=== PATIENT | female | born 1955 ===

== ENCOUNTER 2024-06-24 10:26 | Inpatient (IN) | payer OTHER ==
[~2024-06-24] VITALS: Ht 160 cm; Wt 64.4 kg
[~2024-06-24 10:26] MED LIST: ACID REDUCER20 M1 PO; AVAPRO150 MG PO; LIPITOR20 MG PO
[2024-07-01] MEDS ORDERED: BUPIVACAINE HCL/PF 0.25% 30ML VIAL InF ONE (07:30)
[2024-07-01] MEDS ORDERED: LIDOCAINE HCL 1%/EPINEPHRINE 20ML VIAL IJ ONE (07:30)
[2024-07-01] MEDS ORDERED: METRONIDAZOLE/SODIUM CHLORIDE 500 MG/100 ML PIGGYBACK IV ONE (07:30)
[2024-07-01] MEDS ORDERED: CEFTRIAXONE SODIUM 2,000 MG VIAL IV ONE (07:30)
[2024-07-01] MEDS ORDERED: THROMBIN,HU/FIBRINOGEN/CALCIUM 10 ML SYRINGE TOP ONE (09:00)
[2024-07-01] MEDS ORDERED: VISTASEAL DUAL APPICATOR 1 EACH APPL TOP ONE (09:00)
[2024-07-01] MEDS ORDERED: SUGAMMADEX SODIUM 200 MG/2 ML VIAL IV ONE (09:30)
[2024-07-01] MEDS ORDERED: OxyCODONE HCL 5 MG TABLET (ROXICODONE) PO PRN (10:00)
[2024-07-01] MEDS ORDERED: RINGERS SOLUTION,LACTATED 1,000 ML IV SCH (10:00)
[2024-07-01] MEDS ORDERED: MORPHINE SULFATE 4 MG/ML CARTRIDGE IV PRN (10:00)
[2024-07-01] MEDS ORDERED: ONDANSETRON HCL 2 MG/ML VIAL IV PRN (10:00)
[2024-07-01] MEDS ORDERED: MORPHINE SULFATE 4 MG/ML VIAL IV ONE (11:40)
[2024-07-01] MEDS ORDERED: ENALAPRILAT DIHYDRATE 1.25 MG/ML VIAL IV PRN (11:45)
[2024-07-01 11:51] LABS: HEMATOCRIT 33.4 % (36.0-45.00); HEMOGLOBIN 11.5 g/dL (12.0-15.00); MEAN CELL VOLUME 91.8 fL (80.00-100.00); MEAN CORPUSCULAR HEMOGLOBIN 31.6 pg (27.00-32.0); MEAN CORPUSCULAR HGB CONC 34.4 g/dl (32.0-36.0); PLATELET COUNT 310 K/uL (150-450); RED BLOOD COUNT 3.64 M/uL (4.00-6.00); RED CELL DISTRIBUTION WIDTH 13.9 % (11.5-14.5)
[2024-07-01 12:38] VITALS: BP 143/73; O2SAT 100
[2024-07-01] MEDS ORDERED: HYOSCYAMINE SULFATE 0.125 MG TAB.SUBL SL SCH (13:00)
[2024-07-01] MEDS ORDERED: SIMETHICONE 125 MG CAPSULE PO SCH (13:00)
[2024-07-01] MEDS ORDERED: ACETAMINOPHEN 500 MG GEL..CAP PO SCH (14:00)
[2024-07-01 16:22] VITALS: BP 144/62; O2SAT 98
[2024-07-01] MEDS ORDERED: POLYETHYLENE GLYCOL 3350 17 GM BLIST.PACK PO SCH (17:00)
[2024-07-01] MEDS ORDERED: METOCLOPRAMIDE HCL 5 MG/ML VIAL IV SCH (17:00)
[2024-07-01] MEDS ORDERED: CELECOXIB 200 MG CAPSULE PO SCH (17:00)
[2024-07-01] MEDS ORDERED: GABAPENTIN 300 MG CAPSULE PO SCH (17:00)
[2024-07-01] MEDS ORDERED: FAMOTIDINE/PF 20 MG/2 ML VIAL IV PUSH SCH (21:00)
[2024-07-02 01:56] VITALS: BP 97/68; O2SAT 97
[2024-07-02 07:06] LABS: HEMATOCRIT 28.7 % (36.0-45.00); HEMOGLOBIN 10.1 g/dL (12.0-15.00); MEAN CELL VOLUME 91.4 fL (80.00-100.00); MEAN CORPUSCULAR HEMOGLOBIN 32.1 pg (27.00-32.0); MEAN CORPUSCULAR HGB CONC 35.1 g/dl (32.0-36.0); PLATELET COUNT 171 K/uL (150-450); RED BLOOD COUNT 3.14 M/uL (4.00-6.00); RED CELL DISTRIBUTION WIDTH 13.7 % (11.5-14.5)
[2024-07-02 07:40] LABS: ALBUMIN 2.5 gm/dL (3.4-5.0); CALCIUM 7.8 mg/dL (8.5-10.1); CREATININE SERUM 0.68 mg/dL (0.55-1.02); GFR 85.79; MAGNESIUM 1.5 mg/dL (1.8-2.4); POTASSIUM 4.27 mEq/L (3.5-5.1)
[2024-07-02 08:31] VITALS: BP 136/65; O2SAT 97
[2024-07-02] MEDS ORDERED: LACTOBACILLUS ACIDOPHILUS 1 CAP CAP PO SCH (09:00)
[2024-07-02] MEDS ORDERED: IRBESARTAN 150 MG TABLET PO SCH (09:00)
[2024-07-02] MEDS ORDERED: LACTULOSE 20 G/30 ML BLIST.PACK PO SCH (09:00)
[2024-07-02] MEDS ORDERED: MAGNESIUM SULFATE IN WATER 50 ML IV NR (10:15)
[2024-07-02] MEDS ORDERED: SOD FERRIC GLUC COMPLX/SUCROSE 62.5 MG in 0.9 % SODIUM CHLORIDE 50 ML IV SCH (12:00)
[2024-07-02] MEDS ORDERED: Cyanocobalamin/Mecobalamin 1 TAB.SL SL SCH (12:00)
[2024-07-02 16:56] VITALS: BP 122/67; O2SAT 98
[2024-07-02] MEDS ORDERED: ENOXAPARIN SODIUM 40 MG/0.4 ML SYRINGE SUBCUTANEO SCH (17:00)
[2024-07-02] MEDS ORDERED: ATORVASTATIN CALCIUM 20 MG TABLET PO SCH (17:00)
[2024-07-03] VITALS: BP 107/62; O2SAT 95
[2024-07-03 08:25] VITALS: BP 107/55; O2SAT 96
[2024-07-03] MEDS ORDERED: ENOXAPARIN SODIUM 40 MG/0.4 ML SYRINGE SUBCUTANEO SCH (09:00)
[2024-07-03 10:53] LABS: HEMATOCRIT 26.1 % (36.0-45.00); HEMOGLOBIN 9.3 g/dL (12.0-15.00); MEAN CELL VOLUME 91.5 fL (80.00-100.00); MEAN CORPUSCULAR HEMOGLOBIN 32.5 pg (27.00-32.0); MEAN CORPUSCULAR HGB CONC 35.5 g/dl (32.0-36.0); PLATELET COUNT 146 K/uL (150-450); RED BLOOD COUNT 2.86 M/uL (4.00-6.00); RED CELL DISTRIBUTION WIDTH 13.9 % (11.5-14.5)
[2024-07-03 11:37] LABS: CALCIUM 8.1 mg/dL (8.5-10.1); CREATININE SERUM 0.58 mg/dL (0.55-1.02); GFR 103.08; MAGNESIUM 2.4 mg/dL (1.8-2.4); POTASSIUM 3.65 mEq/L (3.5-5.1)
[2024-07-03 11:58] LABS: PHOSPHOROUS 1.9 mg/dL (2.5-4.9)
[2024-07-03] MEDS ORDERED: POTASSIUM PHOS,M-BASIC-D-BASIC 3 MM/ML VIAL IV NR (12:30)
[2024-07-03 17:46] VITALS: BP 106/73; O2SAT 92
== END 2024-07-03 17:11 | disposition home or self-care (01) | DRG 330 ==
LOC: SURH 07-01 05:40 → O/R 07-01 05:40 → SURH 07-01 10:47
PROVIDERS: Internal Medicine Geriatric Medicine; ADMIT Colon & Rectal Surgery; ATTEND Colon & Rectal Surgery
PROC: 0DBP4ZZ Excision of Rectum, Percutaneous Endoscopic Approach (ICD-10-PCS; 2024-07-01)
PROC: 07Q Lymphatic and Hemic Systems, Repair (ICD-10-PCS; 2024-07-01)
PROC: 0DJD8ZZ Inspection of Lower Intestinal Tract, Via Natural or Artificial Opening Endoscopic (ICD-10-PCS; 2024-07-01)
PROC: 0DTN4ZZ Resection of Sigmoid Colon, Percutaneous Endoscopic Approach (ICD-10-PCS; principal; 2024-07-01 18:15)
DX: K57.32 Diverticulitis of large intestine without perforation or abscess without bleeding (principal); K91.72 Accidental puncture and laceration of a digestive system organ or structure during other procedure; R10.32 Left lower quadrant pain; K66.0 Peritoneal adhesions (postprocedural) (postinfection); D64.89 Other specified anemias

== ENCOUNTER 2024-07-05 14:54 | Inpatient (IN) | payer OTHER ==
[~2024-07-05] VITALS: Ht 160 cm; Wt 65.8 kg
--- NOTE | 2024-07-05 15:19 | NUR ---
SE RECIBE PTE ALERTA Y ORIENTADA X3 EN [facility] DE FAM[facility]. PTE NOTIFICA VANESA SIDO OPERADA EL NIMO [place]URA POR EL DR. MAZARIEGOS Y QUE FAGAN INTERNISTA FUE DR. TELLO. PTE REFIERE QUE DESDE ENTONCES AGUIRRE ESTADO CON VOMITOS CONSTANTES Y DISTENCION ABDOMINAL. NIEGA CAMBIOS EN EVACUACION. SE MIDEN SV Y SE UBICA. PERSONAL DE AMBULANCIA NOTIFICA VANESA ADMINISTRADO ZOFRAN 4MG IV.
[2024-07-05] MEDS ORDERED: METOCLOPRAMIDE HCL 5 MG/ML VIAL IV ONE (15:45)
[2024-07-05] MEDS ORDERED: 0.9 % SODIUM CHLORIDE 500 ML IV ONE (15:45)
[2024-07-05] MEDS ORDERED: FAMOTIDINE/PF 20 MG/2 ML VIAL IV ONE (15:45)
[2024-07-05 16:16] LABS: ABG PH 7.433 (7.35-7.45); ABG PO2 74.6 mmHg (80-100); ABG pCO2 26.8 mmHg (35-45); BICARBONATE 17.5 mmol/l (23-25); SaO2 95.1 %; Tco2 18.3 mmol/l
[2024-07-05 16:17] LABS: allen test SATISFACTORY; o2 21 %; puncture site RADIAL LEFT
--- NOTE | 2024-07-05 16:19 | NUR ---
PTE ALERTA Y ORIENTADA X 3 ESFERAS SE LE ORIENTA SOBRE TX MEDICO EL CUAL REFIERE ENTENDER.SE LE EXTRAEN MUESTRAS BAJO MEDIDAS ASEPTICAS,SE ADMINISTRAN MEDICAMENTOS AMY ORDEN MEDICA.PTE CANALIZADA EN MANO LT #20 PATENTE Y JENNIFER DE EDEMA.SE REALIZA EKG.SE NOTIFICAN ABG A MS HUIZAR.
[2024-07-05 16:49] LABS: HEMATOCRIT 27.9 % (36.0-45.00); HEMOGLOBIN 9.5 g/dL (12.0-15.00); MEAN CELL VOLUME 92.1 fL (80.00-100.00); MEAN CORPUSCULAR HEMOGLOBIN 31.5 pg (27.00-32.0); MEAN CORPUSCULAR HGB CONC 34.2 g/dl (32.0-36.0); RED BLOOD COUNT 3.03 M/uL (4.00-6.00); RED CELL DISTRIBUTION WIDTH 14.1 % (11.5-14.5)
[2024-07-05 16:50] LABS: PLATELET COUNT 117 K/uL (150-450)
[2024-07-05 17:16] LABS: ALBUMIN 1.9 gm/dL (3.4-5.0); BILIRUBIN TOTAL 1.79 mg/dL (0.3-1.2); CALCIUM 8.7 mg/dL (8.5-10.1); CREATININE SERUM 0.82 mg/dL (0.55-1.02); GFR 69.12; GLOBULINA 3.4 G/DL (2.4-3.5); MAGNESIUM 2.6 mg/dL (1.8-2.4); PHOSPHOROUS 2.9 mg/dL (2.5-4.9); POTASSIUM 3.3 mEq/L (3.5-5.1); TOTAL PROTEIN 5.3 gm/dL (6.4-8.2)
[2024-07-05 17:18] LABS: INR 1.13; PROTHROMBIN TIME 12.2 SECONDS (9.0-11.5)
[2024-07-05] MEDS ORDERED: DEXTROSE 50 % IN WATER 0.5 G/ML VIAL IV ONE (17:30)
[2024-07-05 17:36] LABS: PARTIAL THROMBOPLASTIN TIME 39.3 SECONDS (22.0-34.0)
[2024-07-05 17:39] LABS: BILIRUBIN,CONJUGATED 0.92 mg/dL (0.0-0.2); BILIRUBIN,UNCONJUGATED 0.87 mg/dL (0.0-0.6)
[2024-07-05] MEDS ORDERED: PIPERACILLIN/TAZOBACTAM SODIUM 3.375 GM VIAL IV ONE (20:30)
[2024-07-05] MEDS ORDERED: 0.9 % SODIUM CHLORIDE 1,000 ML IV ONE (20:45)
[2024-07-05] MEDS ORDERED: MORPHINE SULFATE 4 MG/ML VIAL IV PRN (21:45)
--- NOTE | 2024-07-05 21:54 | NUR ---
SE RECIBE PTE ALERTA Y ORIENTADA X3 DESDE AREA DE OBSERVACION. SE OBSERVA CON BUEN PATRON RESPIRATORIO, CANALIZADA EN BRAZO JASSI CON ANGIO #20 EL CUAL ESTA PATENTE, JENNIFER DE EDEMA Y ERITEMA RECIBIENDO 0.9%NSS 1,000ML BAJANDO A 125 MLS/HR. SE ORIENTA PTE SOBRE NORMAS DE LA UNIDAD Y SE UBICA EN CAMA #2 EN CRITICO.
[2024-07-05] MEDS ORDERED: PANTOPRAZOLE SODIUM 80 MG in 0.9 % SODIUM CHLORIDE 100 ML IV SCH (22:15)
[2024-07-05 22:18] VITALS: BP 135/83
[2024-07-05 22:21] LABS: BILIRUBIN TOTAL 2.21 mg/dL (0.3-1.2); BILIRUBIN,CONJUGATED 1.04 mg/dL (0.0-0.2); BILIRUBIN,UNCONJUGATED 1.17 mg/dL (0.0-0.6)
[2024-07-05] MEDS ORDERED: PANTOPRAZOLE SODIUM 40 MG/VIAL VIAL IV SCH (22:21)
[2024-07-05] MEDS ORDERED: 0.9 % SODIUM CHLORIDE 1,000 ML IV SCH (22:30)
[2024-07-05] MEDS ORDERED: ONDANSETRON HCL 4 MG in 0.9 % SODIUM CHLORIDE 50 ML IV PRN (22:45)
[2024-07-05] MEDS ORDERED: ENALAPRILAT DIHYDRATE 1.25 MG/ML VIAL IV PRN (22:45)
[2024-07-05 23:09] LABS: PH,URINE 5.5 (5.0-8.0); URINE APPEARANCE Cloudy; URINE BILIRRUBIN Negative (NEGATIVE); URINE BLOOD Negative; URINE COLOR Dark Yellow; URINE KETONE 15 (NEGATIVE); URINE LEUKOCYTE Negative; URINE NITRATE Negative; URINE PROTEIN 30 (NEGATIVE); URINE UROBILINOGEN 0.2 E.U./dl
[2024-07-05 23:13] LABS: URINE BACTERIA 15.1 uL (0.0-1933); URINE CAST 2.44 uL (0.0-1.40); URINE EPITHELIAL CELLS 43.4 uL (0.0-38.8); URINE RBC 5.1 uL (0.0-20.8); URINE WBC 8.8 uL (0.0-23.2)
[2024-07-05 23:31] LABS: URINE GLUCOSE 500 MG/DL (NEGATIVE)
[2024-07-06] VITALS (8 sets, daily range): BP systolic 110–132; BP diastolic 62–79; O2SAT 96–100
[2024-07-06] MEDS ORDERED: PIPERACILLIN/TAZOBACTAM SODIUM 3.375 GM in 0.9 % SODIUM CHLORIDE 100 ML IV SCH
[2024-07-06 01:05] LABS: INR 1.1; PARTIAL THROMBOPLASTIN TIME 28.7 SECONDS (22.0-34.0); PROTHROMBIN TIME 11.9 SECONDS (9.0-11.5)
[2024-07-06 08:14] LABS: HEMATOCRIT 25.3 % (36.0-45.00); MEAN CELL VOLUME 91.1 fL (80.00-100.00); MEAN CORPUSCULAR HGB CONC 34.5 g/dl (32.0-36.0); RED BLOOD COUNT 2.78 M/uL (4.00-6.00); RED CELL DISTRIBUTION WIDTH 13.9 % (11.5-14.5)
[2024-07-06 08:44] LABS: ABG PH 7.464 (7.35-7.45); ABG PO2 80.3 mmHg (80-100); BICARBONATE 20.4 mmol/l (23-25); SaO2 96.4 %; Tco2 21.2 mmol/l; allen test SATISFACTORY; o2 32 %; puncture site RADIAL LEFT
[2024-07-06 08:45] LABS: ALBUMIN 1.6 gm/dL (3.4-5.0); CALCIUM 7.6 mg/dL (8.5-10.1); CREATININE SERUM 0.72 mg/dL (0.55-1.02); GFR 80.31
[2024-07-06 09:06] LABS: PHOSPHOROUS 1.7 mg/dL (2.5-4.9); POTASSIUM 2.77 mEq/L (3.5-5.1)
[2024-07-06] MEDS ORDERED: FUROsemide 20 MG/2 ML VIAL IV SCH (09:30)
[2024-07-06 09:50] LABS: MEAN CORPUSCULAR HEMOGLOBIN 31.2 pg (27.00-32.0)
[2024-07-06 09:53] LABS: HEMOGLOBIN 8.7 g/dL (12.0-15.00); PLATELET COUNT 41 K/uL (150-450)
[2024-07-06] MEDS ORDERED: POTASSIUM CHLORIDE IN WATER 40 MEQ/100 ML PIGGYBAG IV SCH (13:00)
[2024-07-06] MEDS ORDERED: METRONIDAZOLE/SODIUM CHLORIDE 500 MG/100 ML PIGGYBACK IV SCH (17:00)
[2024-07-06] MEDS ORDERED: POTASSIUM PHOS,M-BASIC-D-BASIC 3 MM/ML VIAL IV ONE (17:00)
[2024-07-06] MEDS ORDERED: MEROPENEM 1,000 MG VIAL IV SCH (17:00)
[2024-07-06] MEDS ORDERED: VANCOMYCIN HCL 1,000 MG VIAL IV SCH (21:00)
[2024-07-06 22:01] LABS: MEAN CELL VOLUME 90.9 fL (80.00-100.00); RED BLOOD COUNT 2.37 M/uL (4.00-6.00); RED CELL DISTRIBUTION WIDTH 14.6 % (11.5-14.5)
[2024-07-06 22:14] LABS: HEMOGLOBIN 7.3 g/dL (12.0-15.00); MEAN CORPUSCULAR HEMOGLOBIN 30.8 pg (27.00-32.0)
[2024-07-06 22:15] LABS: HEMATOCRIT 21.6 % (36.0-45.00); PLATELET COUNT 79 K/uL (150-450)
[2024-07-07] VITALS (11 sets, daily range): BP systolic 100–117; BP diastolic 55–81; O2SAT 95–100
[2024-07-07] MEDS ORDERED: DEXTROSE 5 % IN WATER 1,000 ML IV SCH (00:45)
[2024-07-07] MEDS ORDERED: DILTIAZEM HCL 125MG/25ML VIAL IV STA (02:07)
[2024-07-07] MEDS ORDERED: DILTIAZEM HCL 125 MG in 0.9 % SODIUM CHLORIDE 100 ML IV SCH (02:15)
[2024-07-07] MEDS ORDERED: METHYLPREDNISOLONE SOD SUCC 40 MG VIAL IV SCH (02:15)
[2024-07-07] MEDS ORDERED: MEROPENEM 1,000 MG VIAL IV SCH (06:00)
[2024-07-07] MEDS ORDERED: AA 4.25%/CALCIUM/LYTES/DEX 10% 1,000 ML CENTRAL SCH (11:45)
[2024-07-07 15:15] LABS: MEAN CELL VOLUME 90.5 fL (80.00-100.00); MEAN CORPUSCULAR HGB CONC 34.2 g/dl (32.0-36.0); RED BLOOD COUNT 2.58 M/uL (4.00-6.00); RED CELL DISTRIBUTION WIDTH 14.8 % (11.5-14.5)
[2024-07-07 15:24] LABS: HEMATOCRIT 23.4 % (36.0-45.00); PLATELET COUNT 50 K/uL (150-450)
[2024-07-07 15:37] LABS: ALBUMIN 1.4 gm/dL (3.4-5.0); BILIRUBIN TOTAL 1.41 mg/dL (0.3-1.2); CALCIUM 6.6 mg/dL (8.5-10.1); CREATININE SERUM 0.55 mg/dL (0.55-1.02); GFR 109.59; GLOBULINA 2.2 G/DL (2.4-3.5); PHOSPHOROUS 2.3 mg/dL (2.5-4.9); POTASSIUM 3.44 mEq/L (3.5-5.1); TOTAL PROTEIN 3.6 gm/dL (6.4-8.2)
[2024-07-07 15:53] LABS: D DIMER 5.77 MG/L; INR 1.15; PARTIAL THROMBOPLASTIN TIME 23.1 SECONDS (22.0-34.0); PROTHROMBIN TIME 12.4 SECONDS (9.0-11.5)
[2024-07-07 16:02] LABS: C-REACTIVE PROTEIN 13.1 MG/DL (0.00-0.29)
[2024-07-07] MEDS ORDERED: AA 3.31 %/D9.8W/FAT/E-LYTES 10 2,053 ML IV SCH (17:00)
[2024-07-07 17:01] LABS: HEMATOCRIT 26.8 % (36.0-45.00); HEMOGLOBIN 9.1 g/dL (12.0-15.00); MEAN CELL VOLUME 90.3 fL (80.00-100.00); MEAN CORPUSCULAR HEMOGLOBIN 30.5 pg (27.00-32.0); MEAN CORPUSCULAR HGB CONC 33.8 g/dl (32.0-36.0); RED BLOOD COUNT 2.97 M/uL (4.00-6.00); RED CELL DISTRIBUTION WIDTH 14.8 % (11.5-14.5)
[2024-07-07 17:03] LABS: PLATELET COUNT 57 K/uL (150-450)
[2024-07-07 17:14] LABS: ALBUMIN 1.6 gm/dL (3.4-5.0); BILIRUBIN TOTAL 1.46 mg/dL (0.3-1.2); CALCIUM 7.6 mg/dL (8.5-10.1); CREATININE SERUM 0.55 mg/dL (0.55-1.02); GFR 109.59; GLOBULINA 2.4 G/DL (2.4-3.5); POTASSIUM 4.31 mEq/L (3.5-5.1)
[2024-07-08 04:00] VITALS: BP 130/85; O2SAT 97
[2024-07-08 06:56] LABS: HEMATOCRIT 24.3 % (36.0-45.00); MEAN CELL VOLUME 88.8 fL (80.00-100.00); MEAN CORPUSCULAR HGB CONC 35.1 g/dl (32.0-36.0); RED BLOOD COUNT 2.73 M/uL (4.00-6.00); RED CELL DISTRIBUTION WIDTH 14.8 % (11.5-14.5)
[2024-07-08 07:07] LABS: HEMOGLOBIN 8.5 g/dL (12.0-15.00); MEAN CORPUSCULAR HEMOGLOBIN 31.1 pg (27.00-32.0); PLATELET COUNT 68 K/uL (150-450)
[2024-07-08 07:11] VITALS: BP 115/85; O2SAT 100
[2024-07-08 07:43] LABS: MANUAL PLATELET COUNT 176
[2024-07-08 07:44] LABS: ALBUMIN 1.5 gm/dL (3.4-5.0); BILIRUBIN TOTAL 0.87 mg/dL (0.3-1.2); CALCIUM 7.8 mg/dL (8.5-10.1); CREATININE SERUM 0.49 mg/dL (0.55-1.02); GFR 125.22; GLOBULINA 2.7 G/DL (2.4-3.5); MAGNESIUM 2.2 mg/dL (1.8-2.4); POTASSIUM 4.19 mEq/L (3.5-5.1); T4 TOTAL 4.15 UG/DL (4.8-13.9); TOTAL PROTEIN 4.2 gm/dL (6.4-8.2); TSH 2.06 uIU/mL (0.358-3.74)
[2024-07-08 07:49] LABS: C-REACTIVE PROTEIN 7.93 MG/DL (0.00-0.29)
[2024-07-08 07:50] LABS: PHOSPHOROUS 1.5 mg/dL (2.5-4.9)
[2024-07-08] MEDS ORDERED: DIPHENHYDRAMINE HCL 50 MG/ML VIAL 1ML IV NR (07:55)
[2024-07-08] MEDS ORDERED: METHYLPREDNISOLONE SOD SUCC 40 MG VIAL IV NR (07:55)
[2024-07-08] MEDS ORDERED: DIATRIZOATE MEGLUMINE, SODIUM 30 ML BOTTLE PO NR (07:55)
[2024-07-08] MEDS ORDERED: POTASSIUM PHOS,M-BASIC-D-BASIC 15 MM in 0.9 % SODIUM CHLORIDE 250 ML IV NR (08:00)
[2024-07-08 08:30] LABS: PLATELET ESTIMATE NORMAL (NORMAL)
[2024-07-08 12:00] VITALS: BP 126/78; O2SAT 100
[2024-07-08] MEDS ORDERED: METHYLPREDNISOLONE SOD SUCC 40 MG VIAL IV ONE (15:00)
[2024-07-08 16:15] VITALS: BP 118/81; O2SAT 96
[2024-07-08] MEDS ORDERED: MIDAZOLAM HCL 2 MG/2 ML VIAL IV PUSH ONE (16:30)
[2024-07-08] MEDS ORDERED: fentaNYL CITRATE 50 MCG/ML AMPUL IV PUSH ONE (16:30)
[2024-07-08 20:00] VITALS: BP 139/87; O2SAT 96
[2024-07-08] MEDS ORDERED: MEROPENEM 1,000 MG VIAL IV SCH (21:00)
[2024-07-08 23:21] VITALS: BP 124/106; O2SAT 95
[2024-07-09] VITALS (16 sets, daily range): BP systolic 84–124; BP diastolic 71–102; O2SAT 90–100
[2024-07-09 02:48] LABS: ABG PH 7.266 (7.35-7.45); ABG PO2 95.3 mmHg (80-100); ABG pCO2 38.7 mmHg (35-45); BASE EXCESS -9.1 mmol/l; BICARBONATE 17.2 mmol/l (23-25); SaO2 95.7 %; Tco2 18.4 mmol/l; allen test SATISFACTORY; o2 100 %; puncture site RADIAL LEFT
[2024-07-09] MEDS ORDERED: FUROsemide 20 MG/2 ML VIAL IV STA ×2 (03:12→07:16)
[2024-07-09] MEDS ORDERED: DIPHENHYDRAMINE HCL 50 MG/ML VIAL 1ML IV STA (03:16)
[2024-07-09] MEDS ORDERED: DILTIAZEM HCL 125 MG in 0.9 % SODIUM CHLORIDE 100 ML IV SCH (03:30)
[2024-07-09 06:24] LABS: HEMATOCRIT 38.2 % (36.0-45.00); MEAN CELL VOLUME 90.2 fL (80.00-100.00); MEAN CORPUSCULAR HEMOGLOBIN 30.7 pg (27.00-32.0); RED BLOOD COUNT 4.24 M/uL (4.00-6.00); RED CELL DISTRIBUTION WIDTH 15.2 % (11.5-14.5)
[2024-07-09 06:32] LABS: PLATELET COUNT 116 K/uL (150-450)
[2024-07-09] MEDS ORDERED: CHLORHEXIDINE GLUCONATE 15ML BRUSH KIT MM SCH (09:00)
[2024-07-09] MEDS ORDERED: CARBOXYMETHYLCELLULOSE SODIUM 1 EACH DROPERETTE OP SCH (09:00)
[2024-07-09 09:50] LABS: ALBUMIN 1.8 gm/dL (3.4-5.0); ALKALINE PHOSPHATASE 97 U/L (50-136); ANION GAP 12 (10.0-20.0); BILIRUBIN TOTAL 1.25 mg/dL (0.3-1.2); CALCIUM 7.2 mg/dL (8.5-10.1); CARBON DIOXIDE 23 mEq/L (21-32); CHLORIDE 102 mmol/L (98-107); CREATININE SERUM 0.81 mg/dL (0.55-1.02); GFR 70.11; PHOSPHOROUS 3.8 mg/dL (2.5-4.9); SODIUM 131 mmol/L (136-145)
[2024-07-09] MEDS ORDERED: MIDAZOLAM HCL 100 MG in 0.9 % SODIUM CHLORIDE 100 ML IV SCH (10:00)
[2024-07-09 10:31] LABS: ALT/SGPT 49 U/L (12-78); AST/SGOT 31 U/L (15-37)
[2024-07-09 10:32] LABS: BLOOD UREA NITROGEN 32 mg/dL (7-18); BUN CREA RATIO 40 (7.0-25.0); OSMOLALITY SERUM 307 MOSM/KG (275-295)
[2024-07-09 10:35] LABS: GLUCOSE FASTING 778 mg/dL (65-100)
[2024-07-09 10:43] LABS: ABG PH 7.292 (7.35-7.45); ABG PO2 67.3 mmHg (80-100); BASE EXCESS -8.3 mmol/l; BICARBONATE 17.5 mmol/l (23-25); SaO2 89.8 %
[2024-07-09 10:44] LABS: Tco2 18.6 mmol/l; allen test SATISFACTORY; o2 100 %; puncture site RADIAL RIGHT
[2024-07-09 10:45] LABS: ABG PH 7.355 (7.35-7.45); ABG PO2 93.4 mmHg (80-100); BASE EXCESS -6.8 mmol/l; BICARBONATE 17.5 mmol/l (23-25); SaO2 96.6 %; Tco2 18.5 mmol/l
[2024-07-09 10:47] LABS: allen test SATISFACTORY; o2 100 %; puncture site RADIAL RIGHT
[2024-07-09] MEDS ORDERED: VANCOMYCIN HCL 1,000 MG VIAL IV NR (11:00)
[2024-07-09] MEDS ORDERED: 0.9 % SODIUM CHLORIDE 1,000 ML IV SCH (11:15)
[2024-07-09] MEDS ORDERED: INSULIN LISPRO 1,000 UNIT/10 ML UNITS SUBCUTANEO PRN (11:15)
[2024-07-09] MEDS ORDERED: DEXTROSE 50 % IN WATER 0.5 G/ML DISP.SYRIN IV PRN (11:15)
[2024-07-09 11:29] LABS: HEMATOCRIT 37.9 % (36.0-45.00); HEMOGLOBIN 13.1 g/dL (12.0-15.00); MEAN CELL VOLUME 88.9 fL (80.00-100.00); MEAN CORPUSCULAR HEMOGLOBIN 30.8 pg (27.00-32.0); MEAN CORPUSCULAR HGB CONC 34.6 g/dl (32.0-36.0); RED BLOOD COUNT 4.26 M/uL (4.00-6.00); RED CELL DISTRIBUTION WIDTH 14.7 % (11.5-14.5)
[2024-07-09 11:30] LABS: PLATELET COUNT 95 K/uL (150-450)
[2024-07-09 12:48] LABS: ALBUMIN 2.1 gm/dL (3.4-5.0); BILIRUBIN TOTAL 1.01 mg/dL (0.3-1.2); CALCIUM 7.6 mg/dL (8.5-10.1); CREATININE SERUM 0.63 mg/dL (0.55-1.02); GFR 93.69; MAGNESIUM 2.2 mg/dL (1.8-2.4); PHOSPHOROUS 2.8 mg/dL (2.5-4.9); POTASSIUM 4.23 mEq/L (3.5-5.1); TOTAL PROTEIN 5.1 gm/dL (6.4-8.2)
[2024-07-09] MEDS ORDERED: FUROsemide 20 MG/2 ML VIAL IV SCH (13:00)
[2024-07-09] MEDS ORDERED: EMOLLIENT COMBINATION NO.92 2.5 OZ BOTTLE TOP SCH (13:00)
[2024-07-09] MEDS ORDERED: VANCOMYCIN HCL 1,000 MG VIAL IV SCH (21:00)
[2024-07-10] VITALS (15 sets, daily range): BP systolic 100–120; BP diastolic 83–97; O2SAT 96–99
[2024-07-10 07:04] LABS: HEMATOCRIT 38.1 % (36.0-45.00); HEMOGLOBIN 13.1 g/dL (12.0-15.00); MEAN CELL VOLUME 89.1 fL (80.00-100.00); MEAN CORPUSCULAR HEMOGLOBIN 30.5 pg (27.00-32.0); MEAN CORPUSCULAR HGB CONC 34.3 g/dl (32.0-36.0); RED BLOOD COUNT 4.28 M/uL (4.00-6.00); RED CELL DISTRIBUTION WIDTH 14.7 % (11.5-14.5)
[2024-07-10 07:18] LABS: ALBUMIN 1.9 gm/dL (3.4-5.0); BILIRUBIN TOTAL 0.99 mg/dL (0.3-1.2); CALCIUM 7.6 mg/dL (8.5-10.1); CREATININE SERUM 0.62 mg/dL (0.55-1.02); GFR 95.44; GLOBULINA 2.9 G/DL (2.4-3.5); POTASSIUM 4.36 mEq/L (3.5-5.1); TOTAL PROTEIN 4.8 gm/dL (6.4-8.2)
[2024-07-10 07:22] LABS: PLATELET COUNT 124 K/uL (150-450)
[2024-07-10] MEDS ORDERED: INSULIN NPH HUMAN ISOPHANE 1,000 UNITS/10 ML UNITS SUBCUTANEO SCH (09:00)
[2024-07-10 09:30] LABS: ABG PH 7.519 (7.35-7.45); ABG PO2 233.9 mmHg (80-100); ABG pCO2 25.6 mmHg (35-45); BASE EXCESS -0.8 mmol/l; SaO2 99.9 %
[2024-07-10 09:31] LABS: BICARBONATE 20.3 mmol/l (23-25); Tco2 21.1 mmol/l; allen test SATISFACTORY; o2 80 %; puncture site RADIAL RIGHT
[2024-07-10] MEDS ORDERED: FUROsemide 20 MG/2 ML VIAL IV SCH (12:35)
[2024-07-11] VITALS (15 sets, daily range): BP systolic 80–107; BP diastolic 67–89; O2SAT 96–100
[2024-07-11 06:24] LABS: HEMATOCRIT 41.8 % (36.0-45.00); HEMOGLOBIN 14.2 g/dL (12.0-15.00); MEAN CELL VOLUME 90.3 fL (80.00-100.00); MEAN CORPUSCULAR HEMOGLOBIN 30.7 pg (27.00-32.0); PLATELET COUNT 166 K/uL (150-450); RED BLOOD COUNT 4.63 M/uL (4.00-6.00); RED CELL DISTRIBUTION WIDTH 14.7 % (11.5-14.5)
[2024-07-11 06:50] LABS: CALCIUM 7.2 mg/dL (8.5-10.1); CREATININE SERUM 0.38 mg/dL (0.55-1.02); GFR 167.91; MAGNESIUM 2.2 mg/dL (1.8-2.4); POTASSIUM 4.37 mEq/L (3.5-5.1)
[2024-07-11 07:01] LABS: PHOSPHOROUS 1.8 mg/dL (2.5-4.9)
[2024-07-11 08:59] LABS: ABG PH 7.504 (7.35-7.45); ABG PO2 129.3 mmHg (80-100); ABG pCO2 27.3 mmHg (35-45); BASE EXCESS -0.6 mmol/l; SaO2 99.2 %; Tco2 21.8 mmol/l
[2024-07-11 09:00] LABS: allen test SATISFACTORY; o2 50 %; puncture site RADIAL LEFT
[2024-07-11] MEDS ORDERED: POTASSIUM PHOS,M-BASIC-D-BASIC 3 MM/ML VIAL IV NR (09:30)
[2024-07-11] MEDS ORDERED: ANIDULAFUNGIN 100 MG VIAL IV NR (09:45)
[2024-07-11] MEDS ORDERED: FUROsemide 20 MG/2 ML VIAL IV SCH (13:00)
[2024-07-11] MEDS ORDERED: FentaNYL CITRATE/PF 1,000 MCG in 0.9 % SODIUM CHLORIDE 100 ML IV SCH (20:15)
[2024-07-11] MEDS ORDERED: VANCOMYCIN HCL 5 MG/ML REDILUIDO IV SCH (21:00)
[2024-07-12] VITALS (13 sets, daily range): BP systolic 82–97; BP diastolic 60–71; O2SAT 010–100
[2024-07-12 08:33] LABS: CALCIUM 7.3 mg/dL (8.5-10.1); CREATININE SERUM 0.38 mg/dL (0.55-1.02); GFR 167.91; MAGNESIUM 2.2 mg/dL (1.8-2.4); PHOSPHOROUS 2.4 mg/dL (2.5-4.9); POTASSIUM 4.65 mEq/L (3.5-5.1)
[2024-07-12] MEDS ORDERED: ANIDULAFUNGIN 100 MG VIAL IV SCH (09:00)
[2024-07-12 10:09] LABS: HEMATOCRIT 38.8 % (36.0-45.00); HEMOGLOBIN 13.3 g/dL (12.0-15.00); MEAN CELL VOLUME 90.2 fL (80.00-100.00); MEAN CORPUSCULAR HGB CONC 34.4 g/dl (32.0-36.0); PLATELET COUNT 143 K/uL (150-450); RED CELL DISTRIBUTION WIDTH 14.5 % (11.5-14.5)
[2024-07-12] MEDS ORDERED: POTASSIUM PHOS,M-BASIC-D-BASIC 3 MM/ML VIAL IV NR (10:15)
[2024-07-12 10:25] LABS: ABG PH 7.452 (7.35-7.45); ABG PO2 134.6 mmHg (80-100); ABG pCO2 33.2 mmHg (35-45); BASE EXCESS -0.5 mmol/l; BICARBONATE 22.7 mmol/l (23-25); SaO2 99.2 %; Tco2 23.7 mmol/l
[2024-07-12 11:18] LABS: allen test SATISFACTORY; o2 50 %; puncture site RADIAL RIGHT
[2024-07-12] MEDS ORDERED: ALBUMIN HUMAN 100 ML VIAL IV SCH (13:00)
[2024-07-12] MEDS ORDERED: FUROsemide 20 MG/2 ML VIAL IV SCH (13:00)
[2024-07-13] VITALS (10 sets, daily range): BP systolic 98–145; BP diastolic 69–83; O2SAT 95–100
[2024-07-13 07:38] LABS: ALBUMIN 2.2 gm/dL (3.4-5.0); BILIRUBIN TOTAL 1.16 mg/dL (0.3-1.2); CALCIUM 7.5 mg/dL (8.5-10.1); CREATININE SERUM 0.41 mg/dL (0.55-1.02); GFR 153.81; GLOBULINA 2.1 G/DL (2.4-3.5); MAGNESIUM 2.2 mg/dL (1.8-2.4); PHOSPHOROUS 2.3 mg/dL (2.5-4.9); POTASSIUM 4.47 mEq/L (3.5-5.1); TOTAL PROTEIN 4.3 gm/dL (6.4-8.2)
[2024-07-13 08:01] LABS: HEMATOCRIT 32.9 % (36.0-45.00); HEMOGLOBIN 11.2 g/dL (12.0-15.00); MEAN CELL VOLUME 91.1 fL (80.00-100.00); MEAN CORPUSCULAR HEMOGLOBIN 31.1 pg (27.00-32.0); MEAN CORPUSCULAR HGB CONC 34.1 g/dl (32.0-36.0); PLATELET COUNT 166 K/uL (150-450); RED BLOOD COUNT 3.61 M/uL (4.00-6.00); RED CELL DISTRIBUTION WIDTH 14.1 % (11.5-14.5)
[2024-07-13] MEDS ORDERED: POTASSIUM PHOS,M-BASIC-D-BASIC 3 MM/ML VIAL IV NR (09:30)
[2024-07-13 10:22] LABS: ABG PO2 160.1 mmHg (80-100); ABG pCO2 33.2 mmHg (35-45); BICARBONATE 24.8 mmol/l (23-25); SaO2 99.6 %; Tco2 25.8 mmol/l; allen test SATISFACTORY; o2 50 %; puncture site RADIAL LEFT
[2024-07-13] MEDS ORDERED: PIPERACILLIN/TAZOBACTAM SODIUM 4.5 GM VIAL IV NR (17:00)
[2024-07-13] MEDS ORDERED: FUROsemide 20 MG/2 ML VIAL IV SCH (21:00)
[2024-07-14] VITALS (7 sets, daily range): BP systolic 93–116; BP diastolic 62–87; O2SAT 96–100
[2024-07-14] MEDS ORDERED: PIPERACILLIN/TAZOBACTAM SODIUM 3.375 GM VIAL IV SCH (01:00)
[2024-07-14 06:46] LABS: INR 1.08; PARTIAL THROMBOPLASTIN TIME 29.6 SECONDS (22.0-34.0); PROTHROMBIN TIME 11.7 SECONDS (9.0-11.5)
[2024-07-14 07:06] LABS: HEMATOCRIT 35.7 % (36.0-45.00); HEMOGLOBIN 11.9 g/dL (12.0-15.00); MEAN CORPUSCULAR HEMOGLOBIN 30.7 pg (27.00-32.0); MEAN CORPUSCULAR HGB CONC 33.4 g/dl (32.0-36.0); PLATELET COUNT 234 K/uL (150-450); RED BLOOD COUNT 3.88 M/uL (4.00-6.00)
[2024-07-14 07:12] LABS: CALCIUM 7.7 mg/dL (8.5-10.1); CREATININE SERUM 0.42 mg/dL (0.55-1.02); GFR 149.59; MAGNESIUM 2.2 mg/dL (1.8-2.4); PHOSPHOROUS 2.4 mg/dL (2.5-4.9); POTASSIUM 4.47 mEq/L (3.5-5.1)
[2024-07-14 07:13] LABS: C-REACTIVE PROTEIN 12.6 MG/DL (0.00-0.29)
[2024-07-14 07:37] LABS: CHOL HDL RATIO 5.2 (0-5.0)
[2024-07-14 08:53] LABS: ABG PH 7.477 (7.35-7.45); ABG PO2 136.9 mmHg (80-100); ABG pCO2 32.5 mmHg (35-45); BASE EXCESS 0.8 mmol/l; BICARBONATE 23.5 mmol/l (23-25); SaO2 99.3 %; Tco2 24.5 mmol/l
[2024-07-14 09:17] LABS: allen test SATISFACTORY; o2 50 %; puncture site RADIAL LEFT
[2024-07-14 10:42] LABS: UREA CLEARANCE 35.5 ML/MIN
[2024-07-14] MEDS ORDERED: INSULIN NPH HUMAN ISOPHANE 1,000 UNITS/10 ML UNITS SUBCUTANEO SCH (17:00)
[2024-07-15 04:00] VITALS: BP 113/70; O2SAT 99
[2024-07-15 06:49] LABS: HEMATOCRIT 34.5 % (36.0-45.00); MEAN CELL VOLUME 92.5 fL (80.00-100.00); MEAN CORPUSCULAR HGB CONC 32.6 g/dl (32.0-36.0); PLATELET COUNT 244 K/uL (150-450); RED BLOOD COUNT 3.73 M/uL (4.00-6.00); RED CELL DISTRIBUTION WIDTH 13.7 % (11.5-14.5)
[2024-07-15 06:56] LABS: HEMOGLOBIN 11.2 g/dL (12.0-15.00)
[2024-07-15 07:00] LABS: CALCIUM 8.2 mg/dL (8.5-10.1); CREATININE SERUM 0.51 mg/dL (0.55-1.02); GFR 119.57; MAGNESIUM 2.4 mg/dL (1.8-2.4); PHOSPHOROUS 2.3 mg/dL (2.5-4.9); POTASSIUM 3.84 mEq/L (3.5-5.1)
[2024-07-15 07:31] VITALS: BP 121/74; O2SAT 99
[2024-07-15] MEDS ORDERED: POTASSIUM PHOS,M-BASIC-D-BASIC 3 MM/ML VIAL IV NR (08:15)
[2024-07-15 08:51] LABS: ABG PH 7.484 (7.35-7.45); ABG PO2 224.9 mmHg (80-100); ABG pCO2 35.5 mmHg (35-45); BICARBONATE 26.1 mmol/l (23-25); SaO2 99.8 %; Tco2 27.2 mmol/l
[2024-07-15] MEDS ORDERED: ANIDULAFUNGIN 100 MG VIAL IV SCH (09:00)
[2024-07-15 10:33] LABS: allen test SATISFACTORY; o2 80 %; puncture site RADIAL LEFT
[2024-07-15 12:00] VITALS: BP 92/65; O2SAT 100
[2024-07-15 14:18] LABS: ABG PH 7.494 (7.35-7.45); ABG PO2 104.1 mmHg (80-100); ABG pCO2 34.3 mmHg (35-45); BASE EXCESS 2.9 mmol/l; BICARBONATE 25.7 mmol/l (23-25); SaO2 98.5 %; Tco2 26.8 mmol/l
[2024-07-15 14:44] LABS: allen test SATISFACTORY; o2 50 %; puncture site RADIAL LEFT
[2024-07-15] MEDS ORDERED: LEVALBUTEROL HCL 0.63 MG/3 ML SOLUTION IH SCH (16:00)
[2024-07-15 16:24] VITALS: BP 104/72; O2SAT 98
[2024-07-15 20:00] VITALS: BP 109/70; O2SAT 100
[2024-07-15 23:36] VITALS: BP 133/59; O2SAT 98
[2024-07-16 04:06] VITALS: BP 96/60; O2SAT 100
[2024-07-16 07:39] VITALS: BP 102/67; O2SAT 100
[2024-07-16 10:58] LABS: HEMATOCRIT 27.6 % (36.0-45.00); HEMOGLOBIN 9.3 g/dL (12.0-15.00); MEAN CELL VOLUME 92.3 fL (80.00-100.00); MEAN CORPUSCULAR HEMOGLOBIN 31.1 pg (27.00-32.0); MEAN CORPUSCULAR HGB CONC 33.7 g/dl (32.0-36.0); PLATELET COUNT 208 K/uL (150-450); RED CELL DISTRIBUTION WIDTH 13.6 % (11.5-14.5)
[2024-07-16] MEDS ORDERED: DIPHENHYDRAMINE HCL 50 MG/ML VIAL 1ML IV NR (11:00)
[2024-07-16] MEDS ORDERED: METHYLPREDNISOLONE SOD SUCC 40 MG VIAL IV NR (11:00)
[2024-07-16] MEDS ORDERED: DIATRIZOATE MEGLUMINE, SODIUM 30 ML BOTTLE PO NR (11:00)
[2024-07-16 11:48] LABS: ALBUMIN 1.6 gm/dL (3.4-5.0); BILIRUBIN TOTAL 0.68 mg/dL (0.3-1.2); CALCIUM 6.8 mg/dL (8.5-10.1); CREATININE SERUM 0.34 mg/dL (0.55-1.02); GFR 190.91; GLOBULINA 2.6 G/DL (2.4-3.5); POTASSIUM 3.11 mEq/L (3.5-5.1); TOTAL PROTEIN 4.2 gm/dL (6.4-8.2)
[2024-07-16 12:00] VITALS: BP 113/71; O2SAT 100
[2024-07-16] MEDS ORDERED: MULTIVIT INFUSN,ADULT 4,VIT K 10 ML VIAL IV NR (13:00)
[2024-07-16] MEDS ORDERED: THIAMINE HCL 100 MG/ML 2 ML VIAL IV NR (13:00)
[2024-07-16] MEDS ORDERED: SOD FERRIC GLUC COMPLX/SUCROSE 62.5 MG/5 ML AMPUL IV NR (13:00)
[2024-07-16 15:54] VITALS: BP 115/77; O2SAT 100
[2024-07-16] MEDS ORDERED: POTASSIUM CHLORIDE 20MEQ/100ML H2O PB IV NR (16:00)
[2024-07-16 20:31] VITALS: BP 117/76; O2SAT 97
[2024-07-16 23:31] VITALS: BP 109/69; BP 131/76; O2SAT 100
[2024-07-17 04:09] VITALS: BP 103/65; O2SAT 100
[2024-07-17 07:47] VITALS: BP 106/65; O2SAT 96
[2024-07-17] MEDS ORDERED: MULTIVIT INFUSN,ADULT 4,VIT K 10 ML VIAL IV SCH (09:00)
[2024-07-17] MEDS ORDERED: SOD FERRIC GLUC COMPLX/SUCROSE 62.5 MG in 0.9 % SODIUM CHLORIDE 50 ML IV SCH (09:00)
[2024-07-17] MEDS ORDERED: THIAMINE HCL 100 MG/ML 2 ML VIAL IV SCH (09:00)
[2024-07-17] MEDS ORDERED: FLUCONAZOLE IN NACL,ISO-OSM 400 MG/200 ML PIGGYBAG IV SCH (09:00)
[2024-07-17 11:09] LABS: HEMATOCRIT 29.9 % (36.0-45.00); HEMOGLOBIN 10.2 g/dL (12.0-15.00); MEAN CELL VOLUME 91.2 fL (80.00-100.00); MEAN CORPUSCULAR HEMOGLOBIN 31.2 pg (27.00-32.0); MEAN CORPUSCULAR HGB CONC 34.2 g/dl (32.0-36.0); PLATELET COUNT 242 K/uL (150-450); RED BLOOD COUNT 3.28 M/uL (4.00-6.00); RED CELL DISTRIBUTION WIDTH 14.1 % (11.5-14.5)
[2024-07-17 12:04] LABS: ALBUMIN 1.9 gm/dL (3.4-5.0); BILIRUBIN TOTAL 0.6 mg/dL (0.3-1.2); CREATININE SERUM 0.33 mg/dL (0.55-1.02); GFR 197.6; GLOBULINA 2.9 G/DL (2.4-3.5); MAGNESIUM 2.4 mg/dL (1.8-2.4); PHOSPHOROUS 2.9 mg/dL (2.5-4.9); POTASSIUM 4.12 mEq/L (3.5-5.1); TOTAL PROTEIN 4.8 gm/dL (6.4-8.2)
[2024-07-17 12:05] LABS: C-REACTIVE PROTEIN 11.1 MG/DL (0.00-0.29)
[2024-07-17 15:25] VITALS: BP 122/73; O2SAT 97
[2024-07-17 18:47] VITALS: O2SAT 100
[2024-07-18] VITALS (10 sets, daily range): BP systolic 116–132; BP diastolic 64–80; O2SAT 97–100
[2024-07-18] MEDS ORDERED: MIDAZOLAM HCL 2 MG/2 ML VIAL IV PUSH ONE (15:30)
[2024-07-18] MEDS ORDERED: fentaNYL CITRATE 50 MCG/ML AMPUL IV PUSH ONE (15:30)
[2024-07-18] MEDS ORDERED: MORPHINE SULFATE 4 MG/ML VIAL IV PRN (20:30)
[2024-07-19 00:57] VITALS: BP 126/80; O2SAT 100
[2024-07-19 06:36] VITALS: O2SAT 99
[2024-07-19 08:25] LABS: CALCIUM 7.6 mg/dL (8.5-10.1); CREATININE SERUM 0.35 mg/dL (0.55-1.02); GFR 184.63; MAGNESIUM 2.1 mg/dL (1.8-2.4); PHOSPHOROUS 3.4 mg/dL (2.5-4.9); POTASSIUM 3.83 mEq/L (3.5-5.1)
[2024-07-19 08:27] LABS: HEMATOCRIT 29.5 % (36.0-45.00); HEMOGLOBIN 10.3 g/dL (12.0-15.00); MEAN CELL VOLUME 90.6 fL (80.00-100.00); MEAN CORPUSCULAR HEMOGLOBIN 31.7 pg (27.00-32.0); MEAN CORPUSCULAR HGB CONC 34.9 g/dl (32.0-36.0); PLATELET COUNT 235 K/uL (150-450); RED BLOOD COUNT 3.25 M/uL (4.00-6.00); RED CELL DISTRIBUTION WIDTH 13.9 % (11.5-14.5)
[2024-07-19 09:00] VITALS: O2SAT 99
[2024-07-19] MEDS ORDERED: FUROsemide 20 MG/2 ML VIAL IV SCH (09:00)
[2024-07-19 10:00] VITALS: BP 113/89; O2SAT 99
[2024-07-19] MEDS ORDERED: PHENOL 177 ML BOTTLE MM SCH (12:57)
[2024-07-19] MEDS ORDERED: HYOSCYAMINE SULFATE 0.125 MG TAB.SUBL SL PRN (13:00)
[2024-07-19 16:24] VITALS: BP 138/70; O2SAT 100
[2024-07-19] MEDS ORDERED: KETOROLAC TROMETHAMINE 30 MG VIAL IM SCH (17:00)
[2024-07-19 21:45] VITALS: O2SAT 94
[2024-07-20] VITALS (7 sets, daily range): BP systolic 112–134; BP diastolic 62–70; O2SAT 89–100
[2024-07-20] MEDS ORDERED: HYOSCYAMINE SULFATE 0.125 MG TAB.SUBL SL SCH (17:00)
[2024-07-21] VITALS (7 sets, daily range): BP systolic 122–124; BP diastolic 79–83; O2SAT 89–100
[2024-07-21 06:16] LABS: HEMATOCRIT 28.2 % (36.0-45.00); HEMOGLOBIN 9.5 g/dL (12.0-15.00); MEAN CELL VOLUME 91.5 fL (80.00-100.00); MEAN CORPUSCULAR HEMOGLOBIN 30.7 pg (27.00-32.0); MEAN CORPUSCULAR HGB CONC 33.6 g/dl (32.0-36.0); PLATELET COUNT 193 K/uL (150-450); RED BLOOD COUNT 3.08 M/uL (4.00-6.00); RED CELL DISTRIBUTION WIDTH 14.1 % (11.5-14.5)
[2024-07-21 06:52] LABS: INR 1.13; PARTIAL THROMBOPLASTIN TIME 28.6 SECONDS (22.0-34.0); PROTHROMBIN TIME 12.2 SECONDS (9.0-11.5)
[2024-07-21 07:33] LABS: ALBUMIN 1.8 gm/dL (3.4-5.0); BILIRUBIN TOTAL 0.58 mg/dL (0.3-1.2); BILIRUBIN,CONJUGATED 0.28 mg/dL (0.0-0.2); BILIRUBIN,UNCONJUGATED 0.3 mg/dL (0.0-0.6); CALCIUM 7.6 mg/dL (8.5-10.1); CHOL HDL RATIO 4.5 (0-5.0); CREATININE SERUM 0.37 mg/dL (0.55-1.02); GFR 173.16; GLOBULINA 2.8 G/DL (2.4-3.5); MAGNESIUM 2.3 mg/dL (1.8-2.4); POTASSIUM 3.6 mEq/L (3.5-5.1); TOTAL PROTEIN 4.6 gm/dL (6.4-8.2)
[2024-07-21 08:28] LABS: UREA CLEARANCE 29.2 ML/MIN
[2024-07-21] MEDS ORDERED: OCTREOTIDE ACETATE 100MCG/ML (0.1MG/ML) AMPUL SUBCUTANEO SCH (13:00)
[2024-07-22] VITALS (7 sets, daily range): BP systolic 12–184; BP diastolic 78–120; O2SAT 92–100
[2024-07-22] MEDS ORDERED: hydrALAZINE HCL 20 MG VIAL IV PRN (16:00)
[2024-07-22] MEDS ORDERED: ENOXAPARIN SODIUM 60 MG/0.6 ML SYRINGE SUBCUTANEO STA (16:08)
[2024-07-22] MEDS ORDERED: HYDROCORTISONE SODIUM SUCC/PF 100 MG VIAL IV NR (16:15)
[2024-07-22] MEDS ORDERED: DIPHENHYDRAMINE HCL 50 MG/ML VIAL 1ML IV NR (16:15)
[2024-07-22] MEDS ORDERED: ENOXAPARIN SODIUM 40 MG/0.4 ML SYRINGE SUBCUTANEO SCH (17:00)
[2024-07-22] MEDS ORDERED: ENALAPRILAT DIHYDRATE 1.25 MG/ML VIAL IV SCH (18:00)
[2024-07-22 18:43] LABS: MAGNESIUM 2.1 mg/dL (1.8-2.4); PHOSPHOROUS 3.2 mg/dL (2.5-4.9)
[2024-07-22 18:45] LABS: C-REACTIVE PROTEIN 13.6 MG/DL (0.00-0.29)
[2024-07-23] VITALS (10 sets, daily range): BP systolic 132–180; BP diastolic 80–109; O2SAT 86–100
[2024-07-23] MEDS ORDERED: FUROsemide 40 MG/4 ML VIAL IV STA (00:22)
[2024-07-23] MEDS ORDERED: FUROsemide 40 MG/4 ML VIAL IV SCH (01:00)
[2024-07-23] MEDS ORDERED: ENOXAPARIN SODIUM 60 MG/0.6 ML SYRINGE SUBCUTANEO SCH (09:00)
[2024-07-23] MEDS ORDERED: ENOXAPARIN SODIUM 40 MG/0.4 ML SYRINGE SUBCUTANEO SCH (17:00)
[2024-07-23 19:10] LABS: HEMATOCRIT 30.6 % (36.0-45.00); HEMOGLOBIN 10.1 g/dL (12.0-15.00); MEAN CELL VOLUME 91.4 fL (80.00-100.00); MEAN CORPUSCULAR HEMOGLOBIN 30.3 pg (27.00-32.0); MEAN CORPUSCULAR HGB CONC 33.1 g/dl (32.0-36.0); PLATELET COUNT 193 K/uL (150-450); RED BLOOD COUNT 3.34 M/uL (4.00-6.00)
[2024-07-23 19:15] LABS: ERYTHROCYTE SEDIMENTATION RATE 34 mm/hr
[2024-07-23 19:36] LABS: ALBUMIN 2.5 gm/dL (3.4-5.0); BILIRUBIN TOTAL 0.68 mg/dL (0.3-1.2); CALCIUM 8.1 mg/dL (8.5-10.1); CREATININE SERUM 0.38 mg/dL (0.55-1.02); GFR 167.91; GLOBULINA 3.4 G/DL (2.4-3.5); MAGNESIUM 2.1 mg/dL (1.8-2.4); PHOSPHOROUS 2.5 mg/dL (2.5-4.9); TOTAL PROTEIN 5.9 gm/dL (6.4-8.2)
[2024-07-23 19:47] LABS: POTASSIUM 2.85 mEq/L (3.5-5.1)
[2024-07-23] MEDS ORDERED: POTASSIUM CHLORIDE IN WATER 100 ML IV SCH (21:00)
[2024-07-24] VITALS (9 sets, daily range): BP systolic 118–144; BP diastolic 75–85; O2SAT 90–100
[2024-07-24 07:22] LABS: HEMATOCRIT 28.8 % (36.0-45.00); MEAN CELL VOLUME 89.9 fL (80.00-100.00); MEAN CORPUSCULAR HEMOGLOBIN 31.1 pg (27.00-32.0); MEAN CORPUSCULAR HGB CONC 34.6 g/dl (32.0-36.0); PLATELET COUNT 192 K/uL (150-450); RED BLOOD COUNT 3.21 M/uL (4.00-6.00); RED CELL DISTRIBUTION WIDTH 14.1 % (11.5-14.5)
[2024-07-24 08:40] LABS: CALCIUM 8.2 mg/dL (8.5-10.1); CREATININE SERUM 0.44 mg/dL (0.55-1.02); GFR 141.78; MAGNESIUM 2.1 mg/dL (1.8-2.4); PHOSPHOROUS 2.8 mg/dL (2.5-4.9); POTASSIUM 3.55 mEq/L (3.5-5.1)
[2024-07-25] VITALS (7 sets, daily range): BP systolic 127–132; BP diastolic 69–80; O2SAT 100
[2024-07-25] MEDS ORDERED: DIATRIZOATE MEGLUMINE, SODIUM 30 ML BOTTLE PO NR (11:00)
[2024-07-25] MEDS ORDERED: ACETAMINOPHEN 500 MG GEL..CAP PO PRN (18:30)
[2024-07-26] VITALS (9 sets, daily range): BP systolic 132–137; BP diastolic 77; O2SAT 90–100
[2024-07-26 08:46] LABS: ALBUMIN 2.2 gm/dL (3.4-5.0); BILIRUBIN TOTAL 0.44 mg/dL (0.3-1.2); CALCIUM 7.6 mg/dL (8.5-10.1); CREATININE SERUM 0.36 mg/dL (0.55-1.02); GFR 178.72; GLOBULINA 2.7 G/DL (2.4-3.5); MAGNESIUM 2.2 mg/dL (1.8-2.4); PHOSPHOROUS 2.9 mg/dL (2.5-4.9); POTASSIUM 3.45 mEq/L (3.5-5.1); TOTAL PROTEIN 4.9 gm/dL (6.4-8.2)
[2024-07-26 11:00] LABS: HEMATOCRIT 25.6 % (36.0-45.00); MEAN CELL VOLUME 91.7 fL (80.00-100.00); MEAN CORPUSCULAR HGB CONC 34.2 g/dl (32.0-36.0); PLATELET COUNT 163 K/uL (150-450); RED CELL DISTRIBUTION WIDTH 13.8 % (11.5-14.5)
[2024-07-26] MEDS ORDERED: POTASSIUM CHLORIDE 20MEQ/100ML H2O PB IV NR (12:00)
[2024-07-26 14:14] LABS: HEMOGLOBIN 8.8 g/dL (12.0-15.00); MEAN CORPUSCULAR HEMOGLOBIN 31.4 pg (27.00-32.0)
[2024-07-27 00:50] VITALS: BP 135/74; O2SAT 96
[2024-07-27 02:00] VITALS: O2SAT 98
[2024-07-27 06:27] VITALS: O2SAT 90
[2024-07-27 08:00] VITALS: BP 142/70; O2SAT 96
[2024-07-27 16:00] VITALS: BP 133/84; O2SAT 96
[2024-07-28 00:46] VITALS: BP 131/74; O2SAT 96
[2024-07-28 07:10] LABS: HEMATOCRIT 26.7 % (36.0-45.00); HEMOGLOBIN 9.2 g/dL (12.0-15.00); MEAN CELL VOLUME 90.2 fL (80.00-100.00); MEAN CORPUSCULAR HGB CONC 34.3 g/dl (32.0-36.0); PLATELET COUNT 200 K/uL (150-450); RED BLOOD COUNT 2.97 M/uL (4.00-6.00); RED CELL DISTRIBUTION WIDTH 14.1 % (11.5-14.5)
[2024-07-28 07:20] LABS: INR 1.1; PARTIAL THROMBOPLASTIN TIME 27.4 SECONDS (22.0-34.0); PROTHROMBIN TIME 11.9 SECONDS (9.0-11.5)
[2024-07-28 07:54] LABS: BILIRUBIN TOTAL 0.48 mg/dL (0.3-1.2); BILIRUBIN,CONJUGATED 0.22 mg/dL (0.0-0.2); BILIRUBIN,UNCONJUGATED 0.26 mg/dL (0.0-0.6); C-REACTIVE PROTEIN 4.53 MG/DL (0.00-0.29); CALCIUM 6.9 mg/dL (8.5-10.1); CREATININE SERUM 0.31 mg/dL (0.55-1.02); GFR 212.38; GLOBULINA 2.4 G/DL (2.4-3.5); PHOSPHOROUS 3.2 mg/dL (2.5-4.9); POTASSIUM 3.26 mEq/L (3.5-5.1); TOTAL PROTEIN 4.4 gm/dL (6.4-8.2)
[2024-07-28 08:28] VITALS: BP 142/81; O2SAT 96
[2024-07-28 08:46] LABS: UREA CLEARANCE 27.8 ML/MIN
[2024-07-28] MEDS ORDERED: LEVALBUTEROL HCL 0.63 MG/3 ML SOLUTION IH SCH (09:00)
[2024-07-28] MEDS ORDERED: IRBESARTAN 75 MG TABLET PO SCH (09:00)
[2024-07-28] MEDS ORDERED: POTASSIUM CHLORIDE 20MEQ/100ML H2O PB IV NR (10:00)
[2024-07-28 16:00] VITALS: BP 126/80; O2SAT 97
[2024-07-29] VITALS: BP 123/79; O2SAT 95
[2024-07-29 09:28] VITALS: BP 135/86; O2SAT 96
[2024-07-29 16:47] VITALS: BP 132/75; O2SAT 95
[2024-07-29] MEDS ORDERED: AMINO ACIDS 4.25%/DEXTROSE 10% 1,000 ML CENTRAL SCH (17:00)
[2024-07-29] MEDS ORDERED: AA 4.25%/CALCIUM/LYTES/DEX 10% 2,000 ML CENTRAL SCH (17:00)
[2024-07-30] VITALS: BP 127/72; O2SAT 96
[2024-07-30 06:31] LABS: HEMATOCRIT 30.2 % (36.0-45.00); HEMOGLOBIN 10.1 g/dL (12.0-15.00); MEAN CELL VOLUME 92.3 fL (80.00-100.00); MEAN CORPUSCULAR HEMOGLOBIN 30.8 pg (27.00-32.0); MEAN CORPUSCULAR HGB CONC 33.3 g/dl (32.0-36.0); PLATELET COUNT 225 K/uL (150-450); RED BLOOD COUNT 3.27 M/uL (4.00-6.00); RED CELL DISTRIBUTION WIDTH 14.9 % (11.5-14.5)
[2024-07-30 07:08] LABS: CALCIUM 7.9 mg/dL (8.5-10.1); CREATININE SERUM 0.45 mg/dL (0.55-1.02); GFR 138.15; MAGNESIUM 2.2 mg/dL (1.8-2.4); POTASSIUM 4.2 mEq/L (3.5-5.1)
[2024-07-30 08:00] VITALS: BP 125/70; O2SAT 95
[2024-07-30] MEDS ORDERED: METHYLPREDNISOLONE SOD SUCC 40 MG VIAL IV NR (10:00)
[2024-07-30] MEDS ORDERED: DIPHENHYDRAMINE HCL 50 MG/ML VIAL 1ML IV NR (10:00)
[2024-07-30 16:00] VITALS: BP 123/78; O2SAT 95
[2024-07-31] VITALS: BP 104/67; O2SAT 96
[2024-07-31 08:00] VITALS: BP 135/83; O2SAT 99
[2024-07-31] MEDS ORDERED: AMINO ACIDS 1 EACH TABLET PO SCH (09:50)
[2024-07-31 16:28] VITALS: BP 139/79; O2SAT 97
[2024-08-01 00:43] VITALS: BP 130/80; O2SAT 97
[2024-08-01 07:02] LABS: HEMATOCRIT 29.2 % (36.0-45.00); HEMOGLOBIN 9.8 g/dL (12.0-15.00); MEAN CELL VOLUME 91.7 fL (80.00-100.00); MEAN CORPUSCULAR HEMOGLOBIN 30.9 pg (27.00-32.0); MEAN CORPUSCULAR HGB CONC 33.6 g/dl (32.0-36.0); PLATELET COUNT 251 K/uL (150-450); RED BLOOD COUNT 3.19 M/uL (4.00-6.00); RED CELL DISTRIBUTION WIDTH 15.4 % (11.5-14.5)
[2024-08-01 07:52] LABS: CALCIUM 7.9 mg/dL (8.5-10.1); CREATININE SERUM 0.48 mg/dL (0.55-1.02); GFR 128.23; MAGNESIUM 1.9 mg/dL (1.8-2.4); PHOSPHOROUS 3.5 mg/dL (2.5-4.9); POTASSIUM 3.34 mEq/L (3.5-5.1)
[2024-08-01 08:00] LABS: C-REACTIVE PROTEIN 2.24 MG/DL (0.00-0.29)
[2024-08-01] MEDS ORDERED: THIAMINE HCL 100 MG TABLET PO SCH (09:00)
[2024-08-01] MEDS ORDERED: SOD FERRIC GLUC COMPLX/SUCROSE 62.5 MG in 0.9 % SODIUM CHLORIDE 50 ML IV SCH (09:00)
[2024-08-01] MEDS ORDERED: LACTOBACILLUS ACIDOPHILUS 1 CAP CAP PO SCH (09:00)
[2024-08-01] MEDS ORDERED: POTASSIUM CHLORIDE 20MEQ/100ML H2O PB IV NR (11:00)
[2024-08-01] MEDS ORDERED: Cyanocobalamin/Mecobalamin 1 TAB.SL SL SCH (12:43)
[2024-08-01 17:00] VITALS: BP 141/81; O2SAT 96
[2024-08-02 01:29] VITALS: BP 112/60; O2SAT 94
[2024-08-02] MEDS ORDERED: PANTOPRAZOLE SODIUM 40 MG TABLET.DR PO SCH (06:00)
[2024-08-02 08:00] VITALS: BP 116/56; O2SAT 97
[2024-08-02 16:43] VITALS: BP 140/67; O2SAT 97
[2024-08-03 00:48] VITALS: BP 124/69; O2SAT 97
[2024-08-03 08:00] VITALS: BP 117/76; O2SAT 96
[2024-08-03 16:00] VITALS: BP 130/72; O2SAT 95
[2024-08-04 00:15] VITALS: BP 132/92; O2SAT 98
[2024-08-04 07:44] LABS: HEMATOCRIT 29.9 % (36.0-45.00); HEMOGLOBIN 10.4 g/dL (12.0-15.00); MEAN CELL VOLUME 90.8 fL (80.00-100.00); MEAN CORPUSCULAR HEMOGLOBIN 31.4 pg (27.00-32.0); MEAN CORPUSCULAR HGB CONC 34.6 g/dl (32.0-36.0); PLATELET COUNT 195 K/uL (150-450); RED CELL DISTRIBUTION WIDTH 15.1 % (11.5-14.5)
[2024-08-04 08:00] VITALS: BP 112/69; O2SAT 96
[2024-08-04 08:18] LABS: CREATININE SERUM 0.43 mg/dL (0.55-1.02); GFR 145.59; MAGNESIUM 1.8 mg/dL (1.8-2.4); PHOSPHOROUS 2.8 mg/dL (2.5-4.9); POTASSIUM 3.49 mEq/L (3.5-5.1)
[2024-08-04] MEDS ORDERED: POTASSIUM CHLORIDE 20MEQ/100ML H2O PB IV NR (11:00)
[2024-08-04 16:00] VITALS: BP 136/78; O2SAT 97
[2024-08-05] VITALS: BP 143/81; O2SAT 97
[2024-08-05] MEDS ORDERED: METRONIDAZOLE500 MG PO (07:43)
[2024-08-05] MEDS ORDERED: LEVOFLOXACIN750 MG PO (07:44)
== END 2024-08-05 08:12 | disposition home or self-care (01) | DRG 870 ==
LOC: ER 14:54 → SURH 22:41 → ICU 22:41 → ICU-2 22:41 → ICU 07-06 03:14 → SURH 07-17 13:45
PROVIDERS: General Practice; Internal Medicine; Internal Medicine Geriatric Medicine; Nurse Practitioner Family; Specialist; Student in an Organized Health Care Education/Training Program; Surgery; ADMIT Colon & Rectal Surgery; ATTEND Colon & Rectal Surgery
PROC: BW21ZZZ Computerized Tomography (CT Scan) of Abdomen and Pelvis (ICD-10-PCS; 2024-07-05)
PROC: BW24ZZZ Computerized Tomography (CT Scan) of Chest and Abdomen (ICD-10-PCS; 2024-07-05)
PROC: B24BYZZ Ultrasonography of Heart with Aorta using Other Contrast (ICD-10-PCS; 2024-07-05)
PROC: 02HV33Z Insertion of Infusion Device into Superior Vena Cava, Percutaneous Approach (ICD-10-PCS; 2024-07-06)
PROC: 30243N1 Transfusion of Nonautologous Red Blood Cells into Central Vein, Percutaneous Approach (ICD-10-PCS; 2024-07-06)
PROC: 0W9F30Z Drainage of Abdominal Wall with Drainage Device, Percutaneous Approach (ICD-10-PCS; 2024-07-08)
PROC: BW21YZZ Computerized Tomography (CT Scan) of Abdomen and Pelvis using Other Contrast (ICD-10-PCS; 2024-07-08)
PROC: 5A1955Z Respiratory Ventilation, Greater than 96 Consecutive Hours (ICD-10-PCS; principal; 2024-07-09)
PROC: 0BH18EZ Insertion of Endotracheal Airway into Trachea, Via Natural or Artificial Opening Endoscopic (ICD-10-PCS; 2024-07-09)
PROC: BW21YZZ Computerized Tomography (CT Scan) of Abdomen and Pelvis using Other Contrast (ICD-10-PCS; 2024-07-16)
PROC: 4A12X4Z Monitoring of Cardiac Electrical Activity, External Approach (ICD-10-PCS; 2024-07-17)
PROC: BW24YZZ Computerized Tomography (CT Scan) of Chest and Abdomen using Other Contrast (ICD-10-PCS; 2024-07-22)
PROC: B54DZZZ Ultrasonography of Bilateral Lower Extremity Veins (ICD-10-PCS; 2024-07-22)
PROC: 0W9B30Z Drainage of Left Pleural Cavity with Drainage Device, Percutaneous Approach (ICD-10-PCS; 2024-07-24)
PROC: 0W9930Z Drainage of Right Pleural Cavity with Drainage Device, Percutaneous Approach (ICD-10-PCS; 2024-07-25)
PROC: BW21YZZ Computerized Tomography (CT Scan) of Abdomen and Pelvis using Other Contrast (ICD-10-PCS; 2024-07-25)
PROC: BW21YZZ Computerized Tomography (CT Scan) of Abdomen and Pelvis using Other Contrast (ICD-10-PCS; 2024-07-30)
DX: A41.9 Sepsis, unspecified organism (principal); J96.90 Respiratory failure, unspecified, unspecified whether with hypoxia or hypercapnia; K63.1 Perforation of intestine (nontraumatic); K65.9 Peritonitis, unspecified; L02.211 Cutaneous abscess of abdominal wall; J90 Pleural effusion, not elsewhere classified; I48.91 Unspecified atrial fibrillation; D72.829 Elevated white blood cell count, unspecified; D69.6 Thrombocytopenia, unspecified; D64.9 Anemia, unspecified; E78.1 Pure hyperglyceridemia; R65.10 Systemic inflammatory response syndrome (SIRS) of non-infectious origin without acute organ dysfunction; I95.9 Hypotension, unspecified; B95.2 Enterococcus as the cause of diseases classified elsewhere; B96.5 Pseudomonas (aeruginosa) (mallei) (pseudomallei) as the cause of diseases classified elsewhere